=== PATIENT | female | born 1965 | race Two or more races ===

== ENCOUNTER 2021-09-06 05:23 | Emergency (ER) | payer OTHER ==
[~2021-09-06] VITALS: Ht 165.1 cm; Wt 58.1 kg
[2021-09-06] MEDS ORDERED: SYNTHROID88 MCG PO (05:39)
[2021-09-06] MEDS ORDERED: CEPHALEXIN500 MG PO (08:30)
== END 2021-09-06 08:49 ==
LOC: ER 05:23
DX: S01.01XA Laceration without foreign body of scalp, initial encounter (principal); W18.30XA Fall on same level, unspecified, initial encounter; Y93.01 Activity, walking, marching and hiking; Y92.010 Kitchen of single-family (private) house as the place of occurrence of the external cause; Y99.9 Unspecified external cause status

== ENCOUNTER 2021-09-18 15:55 | Emergency (ER) | payer OTHER ==
[~2021-09-18] VITALS: Ht 165.1 cm; Wt 56.7 kg
[~2021-09-18 15:55] MED LIST: CEPHALEXIN500 MG PO; SYNTHROID88 MCG PO
== END 2021-09-18 17:28 | disposition home or self-care (01) ==
LOC: ER 15:55
DX: Z48.02 Encounter for removal of sutures (principal)